=== PATIENT | female | born 1945 | race Two or more races ===

== ENCOUNTER 2022-08-13 07:32 | Outpatient (CLI) | payer OTHER | END 2022-08-13 07:37 | disposition home or self-care (01) | LOC: NUCLEAR 07:32 | PROVIDERS: ATTEND Internal Medicine Cardiovascular Disease | DX: I25.10 Atherosclerotic heart disease of native coronary artery without angina pectoris (principal) | CPT/HCPCS: 78452; 93017; A9500; J0153 ==

== ENCOUNTER 2023-03-03 07:22 | Outpatient (CLI) | payer OTHER | END 2023-03-03 07:23 | disposition home or self-care (01) | LOC: NUCLEAR 07:22 | PROVIDERS: ATTEND Specialist | DX: D35.1 Benign neoplasm of parathyroid gland (principal) | CPT/HCPCS: 78072; A9500 ==